=== PATIENT | female | born 1995 | race Caucasian/White ===

== ENCOUNTER 2020-05-27 04:27 | Inpatient (IN) | payer OTHER ==
[~2020-05-27] VITALS: Ht 160 cm; Wt 78.9 kg
[2020-05-27] VITALS (48 sets, daily range): BP systolic 82–133; BP diastolic 46–84
--- NOTE | 2020-05-27 06:12 | HPEPDOC ---
Obstetrical History & Physical General Date of Admission 05/27/2020 History of Present Illness 25yo at 39+2wks presenting for c/o leakage of clear fluid since 030. She reports going to bathroom and feeling gush of fluid as she stood up. She put on peripad and after an hour, it got soaked with fluid so she came to L&D. Denies DFM, VB, or regular ctx's. Chief Complaint: LOF, term Information Provided By: Patient Care Care: Good Care Dating Final EDC: Jun 01, 2020 Final EDC for Daily Update: Jun 01, 2020 Final EDC by: LMP Antepartum Course Diagnos(e)s Uncomplicated Height (inches): 64 Pre- weight (lbs.): 150 Admission Weight (lbs.): 172 Change in Weight (lbs.): 22 Past Medical History Past Obstetrical History : Past Obstetrical History: [employer] History: No pertinent history Past Medical History Surgical History: [place] teeth, Other (Kidney surgery at ) Family History Significant Family History: Cancer (Father with prostate cancer) Social History Marital Status: Family situation: Spouse/partner home Psychosocial History: No pertinent psych hx * Smoker: non-smoker Alcohol: Denies Drugs: denies Abuse Violence Screening Have you been hit/kicked/slapp: No Have you been sexually assault: No Imunizations Tdap status: current (03/18/2020) Physical Examination Physical Examination GENERAL: Alert and oriented times three. ABDOMEN: Gravid and non-tender to touch. FETUS: Is vertex (VTX) by sterile vaginal examination (SVE), fetus is vertex (VTX) by [place]. CARDS: well-perfused RESP: no exaggerated respiratory effort appreciated, no cough : NEFG, pooling of clear fluid that was nitrazine positive, SVE 2/80/-2 EXTREMITIES: No edema. Vital Signs/I&O Vital Signs Date Time Temp Pulse Resp B/P (MAP) Pulse Ox O2 Delivery O2 Flow Rate FiO2 05/27/20 05:21 98.7 78 99/54 (69) Pertinent Laboratoy Data Blood Type: AB+ RBC Antibody Screen: Negative HIV: Negative Hepatitis B: Negative Rapid Plasma Reagin: Nonreactive Rubella: Immune Varicella: Immune Chlamydia/Gonorrhea: Negative Group B Streptococcus: Negative (05/08/20) Quad Screen Test: Negative Cystic Fibrosis: Negative Glucose Tolerance Test: 100 Anatomy Ultrasound Ultrasound Date: Jan 15, 2020 Placenta Location: Anterior Normal Anatomy: Yes Placenta Previa: No Vaginal Examination Dilation: 2cm Effacement: 80% Station: -3 Cervical Consistency: Soft Cervical Position: Posterior Presentation: Cephalic presentation Assessment Heart Rate (FHR): 145 Variability: Moderate Accelerations: Positive Decelerations: None Tocometer Contractions: No Multi-drug resistant Organism: No history of MDRO Assessment/Plan Assessment 25yo at 39+2wks found to have PROM of clear fluid. GBS neg. EFW 3200g. SVE 280/-2. Plan Admit and orient. Proofer [employer] and consent. Diet: regular prior to starting augmentation of labor with pitocin then clears Group B Streptococcus (GBS) negative. Labs and intravenous (IV) per unit protocol. Counseled on Pitocin and augmentation of labor. Lactated Ringers (LR): Bolus 1000 mL prior to epidural placement, 125 mL/hr. Anticipate normal spontaneous delivery (). C-S as appropriate. MITRA PATEL DO May 27, 2020 06:12
[2020-05-27 07:37] LABS: HEMATOCRIT 31.1 % (36.0-47.0); HEMOGLOBIN 10.3 g/dl (12.0-15.5); MEAN CORPUSCULAR HEMOGLOBIN 29.7 pg (27.0-33.0); MEAN CORPUSCULAR HGB CONC 33.1 g/dl (32.0-36.5); MEAN CORPUSCULAR VOLUME 89.6 fl (80.0-96.0); PLATELET COUNT, AUTOMATED 182 10^3/uL (150-450); RED BLOOD COUNT 3.47 10^6/uL (4.00-5.40); WHITE BLOOD COUNT 9.2 10^3/uL (4.0-10.0)
--- NOTE | 2020-05-27 15:34 | IPNPDOC ---
Obstetrical Progress Note Date of Service May 27, 2020 Subjective Pt OOB at bedside moving with contractions, sates coping well with pain, denies need for medications at this time. Objective Vital Signs Date Time Temp Pulse Resp B/P (MAP) Pulse Ox O2 Delivery O2 Flow Rate FiO2 05/27/20 13:02 91 16 115/69 (84) 05/27/20 11:33 97.6 Assessment Heart Rate (FHR): 140 Variability: Moderate Accelerations: Positive Decelerations: None Heart Rate Tracing: Category I Tocometer Contractions: Yes Frequency: every 2-5 min. Duration: greater than 60 seconds Strength: palpated as moderate Assessment and Plan Age: 25 : 1 Term: 0 Pre-term: 0 Abortions: 0 Livin EGA at Admission: 39 (+2) Status: Reassuring Group B Streptococcus: Negative Anticipate: Vaginal Delivery Additional Comments Patient coping well. Reviewed hx pt states she does not have any records. Pt understanding is that she had congenital absence of ureters at and was delivered at term with surgical construction of ureters. A scar is noted from a surgical incision over the pubic symphysis. Patient denies pain at the site. LR@125ml/hr, continuous efm x2, monitor for change in or maternal status, continue pitocin augmentation and titrate per protocol, evaluate for change as indicated, may have epidural when desired, anticipate vaginal delivery. EMMANUEL BARBER CNM May 27, 2020 15:34
[2020-05-27] MEDS ORDERED: FENTANYL 2MCG/ML ROPIVACAINE 0.2% IN 0.9% NACL 100ML IVBAG As Ordered ONE (17:43)
[2020-05-27] MEDS ORDERED: ePHEDrine SULFATE 25 MG/5 ML(5MG/ML) SYRINGE As Ordered ONE (18:54)
[2020-05-27] MEDS ORDERED: NALOXONE INJ 0.4MG/1ML VIAL (J2310 PER 1MG) IV PRN (19:00)
[2020-05-27] MEDS ORDERED: REFRIGERATOR IV KEYS XX PRN (19:00)
[2020-05-27] MEDS ORDERED: EPIDURAL COMMENT XX SCH (19:00)
[2020-05-27] MEDS ORDERED: ONDANSETRON 4MG/2ML VIAL IV PRN (19:00)
[2020-05-27] MEDS ORDERED: diphenhydrAMINE 50MG/ML VIAL (J1200) IV PRN (19:00)
[2020-05-27] MEDS ORDERED: EPIDURAL/PCA KEYS XX PRN (19:00)
[2020-05-27] MEDS ORDERED: LACTATED RINGER'S 1000 ML IV PRN (19:00)
[2020-05-27] MEDS: ePHEDrine SULFATE 25 MG/5 ML(5MG/ML) SYRINGE IV PRN ×3 (19:01→19:12)
[2020-05-27] MEDS: FENTANYL/ROPIVACAINE/NACL BAG 100 ML EPIDURAL SCH (19:03)
--- NOTE | 2020-05-27 20:07 | IPNPDOC ---
Obstetrical Progress Note Date of Service May 27, 2020 Objective Vital Signs Date Time Temp Pulse Resp B/P (MAP) Pulse Ox O2 Delivery O2 Flow Rate FiO2 05/27/20 19:14 97.7 71 112/60 (77) 05/27/20 18:18 16 Assessment Heart Rate (FHR): 140 Variability: Moderate Accelerations: Positive Decelerations: None Heart Rate Tracing: Category I Tocometer Contractions: Yes Frequency: every 2-2 min. Sterile Vaginal Examination Dilation: 5 cm Effacement (%): 90% Station: -1 Cervical Consistency: Soft Cervical Position: Anterior Postion/Presentation: Cephalic presentation Assessment and Plan Status: Reassuring Group B Streptococcus: Negative Anticipate: Vaginal Delivery Additional Comments Patient received epidural for pain control. SVE by RN at time of valenzuela placement at 1830 was 5/90/-1. FHRT cat I. Will continue pitocin protocol for planned . Patient desires to proceed, safe to continue. MITRA PATEL DO May 27, 2020 20:07
[2020-05-28] VITALS (17 sets, daily range): BP systolic 90–120; BP diastolic 49–77
[2020-05-28] MEDS: FENTANYL/ROPIVACAINE/NACL BAG 100 ML EPIDURAL SCH ×2 (02:39→14:01)
--- NOTE | 2020-05-28 05:17 | DNPDOC ---
[facility] Delivery Note Delivery Note DATE OF DELIVERY: 05/28/2020 PREDELIVERY DIAGNOSIS: 39+3/7 weeks' gestation and labor. POST DELIVERY DIAGNOSIS: Delivered. PROCEDURE: Spontaneous vaginal delivery. LAPPING MACHINE SET UP OPERATOR: Dr. Mitra Patel ANESTHESIA: Epidural ESTIMATED BLOOD LOSS: 100mL. FINDINGS: 8 pound 4 ounce 3750g female , Score 8/9, nuchal cord times x1. Terminal meconium appreciated. DELIVERY SUMMARY: Patient found to be c/c/+3. With excellent maternal effort, spontaneous vaginal delivery of a viable female . Presentation was OA with restitution to LOT with right shoulder anterior position. Anterior shoulder and body delivered without difficulty. Nuchal cord x1 delivered through. Terminal meconium danis reciated on delivery field. with vigorous cry therefore placed on maternal abdomen and care transferred to Team. Pitocin IV bolus initiated. Inspection revealed a second-degree perineal laceration that was repaired in routine fashion using 2-0 vicryl with good approximation of tissue and hemostasis appreciated. Three vessel cord clamped x2 after 8 minute of delayed cord clamping and cut by FOB. Third stage spontaneous with intact placenta. Fundal massage performed until firm tone and hemostasis achieved. EBL 100ml. Mother and infant stable and bonding upon my leaving the room. MIRTA PATEL DO May 28, 2020 05:17
[2020-05-29] MEDS ORDERED: PERCOCET 5MG/325MG TAB As Ordered ONE (03:57)
[2020-05-29] MEDS ORDERED: PERCOCET 5MG/325MG TAB PO ONE (04:00)
[2020-05-29] MEDS ORDERED: PERCOCET 5MG/325MG TAB PO PRN (05:15)
[2020-05-29 05:56] VITALS: BP 95/53
--- NOTE | 2020-05-29 12:16 | IPN ---
DATE: 05/29/2020 This lady is a 25-year-old 1, now para 1, admitted at 39 and 2 weeks of gestation with spontaneous rupture of membranes and contractions. She had a spontaneous vaginal delivery with epidural in place, female infant, 8 pounds 4 ounces, 3750 gm, Apgars 8 and 9 at 1 and 5 minutes respectively. She had a cord x1, internal meconium. Overnight she had some left lower quadrant unexplained pain. She was passing gas, voiding, otherwise had no other issues. The area of concern was possibly gas related or musculoskeletal. She was given Percocet and Ibuprofen which resolved the issue. She is presently sleeping and comfortable. Vital signs today: Blood pressure 95/53, respirations 18, pulse 72, temperature 98.3. We discussed phlebitis, cystitis, mastitis, endometritis and cellulitis, diet, exercise, pain management, perineal, breast, and wound care. The patient is planning on discharge tomorrow. Medications were dispensed to [place]. She is to have a 6 week checkup at [facility]. All questions were answered. Her admitting hemoglobin was 10.3, hematocrit 31.1 and platelets were 182. The patient is progressing well. [facility] CAN[facility]ER CENTERPoornima
[2020-05-29 18:00] VITALS: BP 105/57
[2020-05-30 06:00] VITALS: BP 117/79
--- NOTE | 2020-05-30 07:22 | IPNPDOC ---
Progress Note Date of Service: May 30, 2020 Day#: 2 Progress Note SUBJECT: 25-year-old 1, now para 1, admitted at 39 and 2 weeks of gestation with spontaneous rupture of membranes and contractions. She had a spontaneous vaginal delivery with epidural in place, female infant, 8 pounds 4 ounces, 3750 gm, Apgars 8 and 9 at 1 and 5 minutes respectively. doing well day #2. She has been ambulating, voiding spontaneously without issue and tolerating regular diet. Breast feeding without issue. Reports lochia is minimal. Patient is ambulating well. Reports some cramping with . Denies any pain. Voiding and stooling without difficulty. OBJECTIVE: VITAL SIGNS: Within normal limits, afebrile. Alert and oriented times three. normal work of breathing Heart rate: Regular rate and rhythm, Abdomen: Fundus firm at U-2. Soft, NTTP. . ASSESSMENT: 25 yo status post uncomplicated spontaneous vaginal delivery after presenting in labor with spontaneous rupture of membranes (SROM). doing well on day 2. Vitals within normal limits, afebrile, hemodynamically stable with no evidence of infection. mother and baby bonding well without issues. no SI/HI . PLAN: 1. Discharge to home today. 2. Tylenol and Motrin for pain. 3. Encourage breast feeding and ambulation. 4. NFP for contraception for now. She was counseled on risks of close interval and contraceptive option available and rates of failure. 5. Routine PP visit in 6 weeks in clinic. 6. Discussed return precautions at length. VS, I&O, 24H, Fishbone Vital Signs/I&O Vital Signs Date Time Temp Pulse Resp B/P (MAP) Pulse Ox O2 Delivery O2 Flow Rate FiO2 05/29/20 18:00 98.3 74 18 105/57 (73 98 Room Air JANUSZ CHAIREZ MD May 30, 2020 04:54
[2020-05-30 17:51] VITALS: BP 133/81
[2020-05-31 06:00] VITALS: BP 122/68
--- NOTE | 2020-05-31 09:33 | IPNPDOC ---
Progress Note Date of Service: May 31, 2020 Day#: 3 Progress Note SUBJECT:25-year-old 1, now para 1, admitted at 39 and 2 weeks of gestation with spontaneous rupture of membranes and contractions. She had a spontaneous vaginal delivery with epidural in place, female , 8 pounds 4 ounces, 3750 gm, Apgars 8 and 9 at 1 and 5 minutes respectively. doing well day #3. She has been ambulating, voiding spontaneously without issue and tolerating regular diet. Breast feeding without issue. Reports lochia is minimal. Patient is ambulating well. Denies any pain. Voiding and stooling without difficulty. OBJECTIVE: VITAL SIGNS: Within normal limits, afebrile. Alert and oriented times three. normal work of breathing Heart rate: Regular rate and rhythm, Abdomen: Fundus firm at U-2. Soft, NTTP. . ASSESSMENT: 25 yo status post uncomplicated spontaneous vaginal delivery after presenting in labor with spontaneous rupture of membranes (SROM). doing well on day 3. Vitals within normal limits, afebrile, hemodynamically stable with no evidence of infection. mother and baby bonding well without issues. no SI/HI . PLAN: 1. Discharge to home today. 2. Tylenol and Motrin for pain. 3. Encourage breast feeding and ambulation. 4. NFP for contraception for now. She was counseled on risks of close interval and contraceptive option available and rates of failure. 5. Routine PP visit in 6 weeks in clinic. 6. Discussed return precautions at length. VS, I&O, 24H, Fishbone Vital Signs/I&O Vital Signs Date Time Temp Pulse Resp B/P (MAP) Pulse Ox O2 Delivery O2 Flow Rate FiO2 05/31/20 06:00 98.1 85 18 122/68 (86) 05/30/20 17:51 97 Room Air JANUSZ CHAIREZ MD May 31, 2020 09:33
[2020-05-31] MEDS ORDERED: IBUP80TA PO (09:36)
[2020-05-31] MEDS ORDERED: ACET-683 PO (09:36)
[2020-05-31] MEDS ORDERED: DOCU100C16 PO (09:36)
--- NOTE | 2020-05-31 09:55 | DS ---
DATE OF ADMISSION: 05/27/2020 DATE OF DISCHARGE: BRIEF HISTORY: This is a 25-year-old 1, now para 1 admitted with spontaneous rupture of membranes at 39 and 2 weeks of gestation, delivered a live female, epidural in place, 8 pounds, 4 ounces, 3750 gm, score 8 and 9 at 1 and 5 minutes respectively. Cord times one and terminal meconium. She had second degree perineal laceration which was repaired. On her second day we discussed phlebitis, cystitis, mastitis, endometritis, cellulitis, diet, exercise, pain management, perineal, breast and wound care. Her admitted hemoglobin was 10.3, hematocrit 31.4 and platelets 182. Vital signs on discharge: Blood pressure 117/79, respirations 18, pulse 64, temperature is 97.8. The rest of the examination was unremarkable. Normocephalic, atraumatic. Neck full range of motion. Pupils equal and reactive to light. Distal pulses symmetric. No evidence of deep venous thrombosis (DVT), pulmonary embolus (PE) or superficial phlebitis. Chest is clear bilaterally at the bases. No wheezes or rhonchi. No costovertebral angle (CVA) tenderness. Abdomen soft, 4 quadrant bowel sounds are noted. Uterus 2 below, lochia moderate. No rashes, lesions or pruritus. No arthralgia, myalgia. No complaint of joint pain. No complaint of cough, wheeze, shortness of breath or dyspnea on exertion. No nausea, vomiting, diarrhea or constipation, urgency or frequency. The patient was discharged improved. She is to parts picker her medications at [place] and as a six week checkup at [facility]. All questions were answered, 20 minute discussion. CLARICE
== END 2020-05-31 11:40 | disposition home or self-care (01) | DRG 807 ==
LOC: M LDO 04:27 → M LDI 06:31 → M OBS 05-28 08:03
PROC: 10E0XZZ Delivery of Products of Conception, External Approach (ICD-10-PCS; principal; 2020-05-28)
PROC: 0KQM0ZZ Repair Perineum Muscle, Open Approach (ICD-10-PCS; 2020-05-28)
DX: O42.02 Full-term premature rupture of membranes, onset of labor within 24 hours of rupture (principal); Z37.0 Single live birth; Z3A.39 39 weeks gestation of pregnancy; O69.81X0 Labor and delivery complicated by cord around neck, without compression, not applicable or unspecified; O77.0 Labor and delivery complicated by meconium in amniotic fluid; O70.1 Second degree perineal laceration during delivery

== ENCOUNTER → 2020-08-19 | Outpatient (CLI) | payer SELFPAY ==
[~2020-08-19] MED LIST: ACET-683 PO; DOCU100C16 PO; IBUP80TA PO
== END ==
LOC: M LABSMTC 11:42
PROVIDERS: ATTEND Pediatrics
DX: Z11.52 Encounter for screening for COVID-19 (principal)

== ENCOUNTER 2021-03-27 06:59 | Emergency (ER) | payer OTHER, SELFPAY ==
[~2021-03-27] VITALS: Ht 167.6 cm; Wt 75.4 kg
[2021-03-27 07:00] VITALS: BP 141/93
[2021-03-27] MEDS ORDERED: EFFE37.5 PO (07:26)
[2021-03-27] MEDS ORDERED: ONDANSETRON 4MG/2ML VIAL IV ONE (07:30)
[2021-03-27] MEDS ORDERED: NS 1,000 ML IV ONE (07:30)
[2021-03-27] MEDS ORDERED: diphenhydrAMINE 50MG/ML VIAL (J1200) IV ONE (07:30)
[2021-03-27 08:22] LABS: BASO % 0.2 % (0.0-1.0); EOS # 0.2 10^3/uL (0.0-0.5); EOS % 1.8 % (0.0-3.0); HEMATOCRIT 40.8 % (36.0-47.0); HEMOGLOBIN 14.1 g/dl (12.0-15.5); LYMPH # 1.3 10^3/uL (1.5-5.0); LYMPH % 14.3 % (24.0-44.0); MEAN CORPUSCULAR HEMOGLOBIN 31.5 pg (27.0-33.0); MEAN CORPUSCULAR HGB CONC 34.6 g/dl (32.0-36.5); MEAN CORPUSCULAR VOLUME 91.1 fl (80.0-96.0); MONO # 0.4 10^3/uL (0.0-0.8); MONO % 4.2 % (2.0-8.0); NEUTROPHILS # 7.4 10^3/uL (1.5-8.5); NEUTROPHILS % 79.2 % (36.0-66.0); PLATELET COUNT, AUTOMATED 228 10^3/uL (150-450); RED BLOOD COUNT 4.48 10^6/uL (4.00-5.40); WHITE BLOOD COUNT 9.3 10^3/uL (4.0-10.0)
[2021-03-27 08:44] LABS: ERYTHROCYTE SEDIMENTATION RATE 5 mm/hr (0-20)
[2021-03-27 08:50] LABS: C REACTIVE PROTEIN QUANTITATIV 0.41 MG/DL (0.00-0.30); FREE T4 1.33 NG/DL (0.76-1.46); THYROID STIMULATING HORMONE 0.881 uIU/ML (0.358-3.740)
--- NOTE | 2021-03-27 08:57 | REPVR ---
PROCEDURE INFORMATION: Exam: CT Head Without Contrast Exam date and time: 03/27/2021 7:30 AM Age: 25 years old Clinical indication: Pain; Headache; Migraine; Additional info: Severe frontal "migraine" worst of life TECHNIQUE: Imaging protocol: Computed tomography of the head without contrast. Radiation optimization: All CT scans at this facility use at least one of these dose optimization techniques: automated exposure control; mA and/or kV adjustment per patient size (includes targeted exams where dose is matched to clinical indication); or iterative reconstruction. COMPARISON: No relevant prior studies available. FINDINGS: Brain: Normal. No hemorrhage. Unremarkable white matter. No mass effect. Cerebral ventricles: No ventriculomegaly. Paranasal sinuses: Visualized sinuses are unremarkable. No fluid levels. Mastoid air cells: Visualized mastoid air cells are well aerated. Bones/joints: Unremarkable. No acute fracture. Soft tissues: Unremarkable. IMPRESSION: No acute intracranial abnormality. Electronically signed by: Alice Brothers On 03/27/2021 08:57:22 AM
[2021-03-27] MEDS ORDERED: KETOROLAC 30 MG/ML 1ML VIAL IV ONE (09:15)
[2021-03-27] MEDS ORDERED: dexameTHASONE 4 MG/ML 1ML VIAL (J1100 PER 1MG) IV ONE (09:55)
[2021-03-27] MEDS ORDERED: MAG SULF 1GM/100ML (MAG RUN) 1 GM in IV 1 EA IV ONE (09:55)
== END 2021-03-27 12:09 | disposition home or self-care (01) ==
LOC: M ED 06:59
DX: G43.109 Migraine with aura, not intractable, without status migrainosus (principal); Z79.899 Other long term (current) drug therapy; Z86.69 Personal history of other diseases of the nervous system and sense organs
CPT/HCPCS: 70450; 80047; 84439; 84443; 84702; 85025; 85652; 86140; 96361; 96374; 96375; 99283; J1100; J1200; J1885; J2405; J3475

== ENCOUNTER → 2022-04-20 | Outpatient (CLI) | payer OTHER ==
[~2022-04-20] MED LIST changes: +EFFE37.5 PO
== END ==
LOC: M RAD 10:15
PROVIDERS: ATTEND Nurse Practitioner Women's Health
DX: O02.1 Missed abortion (principal)